=== PATIENT | male | born 1955 | race African-American/Black ===

== ENCOUNTER 2019-03-26 09:16 | Emergency (ER) | payer OTHER, MEDICAID ==
[~2019-03-26] VITALS: Ht 170.2 cm; Wt 97.0 kg
[~2019-03-26 09:16] MED LIST: ASPI-1393 PO; ATOR40TA70 PO; INSU3INS6 SUBCUT; INSULIN DETEMIR; INSULIN LISPRO; METF-416 PO; TAMS0.4C31 PO; VIAG50 PO
[2019-03-26] MEDS ORDERED: ONDANSETRON HCL 4MG/2ML INJ IV STA (10:39)
[2019-03-26] MEDS ORDERED: SODIUM CHLORIDE 0.9% 1,000 ML IV ONE (10:39)
[2019-03-26 11:10] VITALS: BP 128/74
[2019-03-26 11:29] LABS: BASOPHILS % 0.3 % (0.0-2.0); EOSINOPHILS % 0.3 % (0.0-5.0); HEMATOCRIT. 41.1 % (42.0-52.0); LYMPHOCYTES % 26.8 % (20.0-50.0); MEAN CORPUSCULAR HEMOGLOBIN 29.7 pg (28.0-32.0); MEAN CORPUSCULAR VOLUME 87.5 fL (80.0-94.0); MEAN PLATELET VOLUME 10.1 fl (7.4-10.4); MONOCYTES % 6.2 % (2.0-8.0); NEUTROPHILS % 66.4 % (40.0-76.0); PLATELET 200 x1000/uL (130-400)
[2019-03-26 11:36] LABS: CHLORIDE 106 mEq/L (98-107)
[2019-03-26 11:37] LABS: PROTHROMBIN TIME 9.8 sec (9.6-11.0)
[2019-03-26 11:41] LABS: ETHANOL BLOOD < 10 mg/dL
[2019-03-26] MEDS ORDERED: LEVOFLOXACIN 500MG PREMIX 100 ML IV ONE (12:00)
[2019-03-26] MEDS ORDERED: METRONIDAZOLE 500 MG PREMIX 100 ML IV ONE (12:00)
== END 2019-03-26 14:15 | disposition home or self-care (01) ==
LOC: ER 10:13 → CANBEDREQ 16:05
DX: R19.7 Diarrhea, unspecified (principal); I10 Essential (primary) hypertension; F17.210 Nicotine dependence, cigarettes, uncomplicated
CPT/HCPCS: 36415; 71045; 74176; 80053; 80320; 83605; 83690; 84145; 84484; 85025; 85610; 87040; 87493; 93005; 96361; 96365; 96368; 96375; 99284; J1956; J2405; J3490; J7030; G0480

== ENCOUNTER 2024-08-09 14:44 | Emergency (ER) | payer MEDICAID, MEDICARE, OTHER ==
[~2024-08-09] VITALS: Ht 170.2 cm; Wt 104.0 kg
[~2024-08-09 14:44] MED LIST changes: -ASPI-1393 PO; +ASPI-1497 PO
[2024-08-09 14:46] VITALS: PULSE 84; RESP 18; O2SAT 99
[2024-08-09 14:52] VITALS: BP 129/65; TEMP 98.3; O2SAT 98
[2024-08-09] MEDS ORDERED: SULF1TAB48 MT (15:32)
== END 2024-08-09 16:10 | disposition home or self-care (01) ==
LOC: ER 14:44
DX: L73.9 Follicular disorder, unspecified (principal); E11.9 Type 2 diabetes mellitus without complications; I10 Essential (primary) hypertension; Z88.0 Allergy status to penicillin; Z79.899 Other long term (current) drug therapy
CPT/HCPCS: 99283